=== PATIENT | female | born 2005 | race Caucasian/White ===

== ENCOUNTER 2025-01-06 08:50 | Outpatient (REF) | payer OTHER, SELFPAY ==
--- NOTE | ~2025-01-06 | US_ITS ---
EXAMINATION: US PELVIS TRANSABDOMINAL AND TRANSVAGINAL CLINICAL INFORMATION: Reason for Exam-PELVIC PAIN COMPARISON: None available. TECHNIQUE: Ultrasound of the pelvis is performed using both transabdominal and transvaginal transducers along with Doppler. Transvaginal imaging is performed due to inadequate visualization transabdominally. FINDINGS: Uterus: The uterus is anteverted and measures 7.7 x 3.4 x 4.5 cm. Volume of 61.2 cm3 Endometrial echo complex measures 0.6 cm. Intrauterine device appears properly positioned within the endometrial canal. The uterus is smooth in contour and has normal myometrial echogenicity. No focal lesions demonstrated. Adnexa: Right ovary measures 3.6 x 2.0 x 1.8 cm (Volume of 6.7 cm3). Normal follicular appearance. Left ovary measures 4.3 x 2.5 x 2.8 cm (Volume of 15.7 cm3). Normal follicular appearance. US/US pelvic and transvaginal IMPRESSION: No acute sonographic findings demonstrated. Electronically signed by: Alba Lange MD 01/06/2025 06:27 PM EDT
--- OUTSIDE RECORDS SUMMARY | 2025-01-06 09:10 | XMS_ITS | Clinical Summary ---
Author Organization [facility] Address [address] [facility] [address] [place] [phone] Phone Care Team Providers Care Air Purifier Servicer Name Role Phone Pcp, Unknown Primary Care Provider Unavailabl e Allergies No known active allergies Medications ARIPiprazole (ABILIFY) 2 MG tablet daily. 4 Active FLUoxetine (PROZAC) 10 MG capsule Take 1 capsule by mouth daily. Active FLUoxetine (PROZAC) 20 MG capsule Active PANFILO 24 FE 1 mg-20 mcg (24)/75 mg (4) Tab 4 Active OXcarbazepine (TRILEPTAL) 300 MG tablet Take 300 mg by mouth daily. 4 Active ZAFEMY 150-35 mcg/[address] 1 patch onto the skin once a week. 5 Active traZODone (DESYREL) 50 MG tablet Take 50 mg by mouth. 5 Active ondansetron (ZOFRAN-ODT) 4 MG disintegrating tablet Take 1 tablet (4 mg total) by mouth every 8 (eight) hours as needed for nausea. 15 tablet 5 Active Encounters Date Type Department Care Team Description 11/04/2024 9:54 PM EDT - 11/05/2024 12:10 AM EDT Emergency [facility] [address] [place] [address] Guerrero Salguero, DO Discharge Disposition: Home or Self Care from Last 3 Months Social History Tobacco Use Types Packs/Day Years Used Date Smoking Tobacco: Never Smokeless Tobacco: Never Tobacco Cessation:Counseling Given: Not Answered Education Answer Date Recorded Are you interested in more education? Not on heidy e 03/06/2023 Are you concerned about learning? Not on file 03/06/2023 No 03/06/2023 No 03/06/2023 Digital Access Answer Date Recorded No 03/06/2023 No 03/06/2023 Reliable internet access at home? Not on file 03/06/2023 Device with a working camera? Not on file Intimate Partner Violence Answer Date R ecorded Are you denied basic needs s uch as food, clothing, or medical care? No 11/04/2024 In the past 12 months have y ou been in a relationship with a person who hurts, threatens, or tries to control you? No 11/04/2024 Are you denied basic needs s uch as food, clothing, or medical care? No 11/04/2024 In the past 12 months have y ou been in a relationship with a person who hurts, threatens, or tries to control you? No 11/04/2024 Comments Unknown Sex and Gender Information Value Date Recorded Sex Assigned at Female 11/04/2024 7:57 PM EDT Legal Sex Female 7:47 PM EDT Gender Identity Female 11/04/2024 7:57 PM EDT Sexual Orientation Straight 11/04/2024 7: 57 PM EDT Last Filed Vital Signs Vital Sign Reading Time Taken Comments Blood Pressure 106/54 11/04/2024 11:00 PM EDT Pulse 72 11/04/2024 9:27 PM EDT Temperature 37.5 C (99.5 F) 11/04/2024 11:00 PM EDT Respiratory Rate 16 11/04/2024 9:27 PM EDT Oxygen Saturation 100% 11/04/2024 11:00 PM EDT Inhaled Oxygen Concentration - - Weight 59 kg (130 lb) 11/04/2024 7:59 PM EDT Height 160 cm (5' 3 ) 11/04/2024 7:59 PM EDT Body Mass Index 23.03 11/04/2024 7:59 PM EDT Plan of Treatment Health Maintenance Due Date Last Done Comments Adult Td,Tdap Booster 2003 MMR VACCINES (1 of 1 - Stand julia series) 10/13/2004 COMBINED DTaP,Tdap,Td (1 - Tdap) 10/13/2010 DEPRESSION SCREENING 2015 SMOKING Hx and SMOKELESS TOB ACCO SCREENING 10/13/2016 HPV VACCINES (1 - 3-dose series) 10/13/2018 CHLAMYDIA SCREENING 2019 MENINGOCOCCAL VACCINES (B) ( 1 of 2 - Standard) 2019 ADOLESCENT UNIVERSAL LIPID SCREENING 10/13/2020 HEPATITIS C SCREENING 10/13/2021 HIV ONE-TIME SCREENING (18-6 5 YEARS) 10/13/2021 COVID-19 VACCINE (1 - 2023-2 5 season) 2024 PAP SMEAR 10/13/2024 HEPATITIS A VACCINES Aged Out No long er eligible based on patient's age to complete this topic HIB VACCINES Aged Out No longer eligi ble based on patient's age to complete this topic MENINGOCOCCAL VACCINES (ACWY) Aged Out No longer eligible based on patient's age to complete this topic PNEUMOCOCCAL VACCINES (0-49 years) Aged Out No longer eligible based on patient's age to complete this topic Medical Devices Not on file Procedures Procedure Name Priority Date/Time Associated Diagnosis Comments URINALYSIS W/REFLEX URINE CULTURE STAT 11/04/2024 10:22 PM EDT LIPASE STAT 11/04/2024 8:05 PM EDT LFTS (HEPATIC PANEL) STAT 11/04/2024 8:05 PM EDT HCG, SERUM QUALITATIVE STAT 11/04/2024 8:05 PM EDT BASIC METABOLIC PANEL STAT 11/04/2024 8:05 PM EDT CBC AND DIFFERENTIAL STAT 11/04/2024 8:05 PM EDT from Last 3 Months Results * (ABNORMAL) Urinalysis w/reflex Urine Culture (11/04/2024 10:22 PM EDT) COLOR Yellow Yellow [facility] CLARITY HAZY [facility] GLUCOSE Negative Negative [facility] BILI Negative Negative [facility] KETONES 1+(A) Negative [facility] SPECIFIC GRAVITY >1.030 1.005 - 1.030 [facility] BLOOD Trace(A) Negative [facility] PH 6.0 5.0 - 8.0 [facility] Protein-UA Trace(A) Negative [facility] NITRITE Negative Negative [facility] Leukocyte esterase, ur Negative Negative [facility] Urine (Urine) 11/04/2024 10: 22 PM EDT 11/04/2024 10:23 PM EDT us Guerrero G Salguero DO URINE ORDERABLES Final Result Performing Organization Address [facility]/ZIP Co de Phone Number [address] [phone] * HCG, serum qualitative (11/04/2024 8:05 PM EDT) HCG, QUALITATIVE Negative Negative IU/L [facility] Blood 11/04/2024 8:05 PM EDT 11/04/2024 8:11 PM EDT us Guerrero Salguero DO LAB BLOOD ORDERABLES Final Re sult Performing Organization Address [facility] Co de Phone Number [address] [phone] * (ABNORMAL) LFTs (hepatic panel) (11/04/2024 8:05 PM EDT) ALKALINE PHOSPHATASE 53 39 - 117 U/L [facility] TOTAL BILIRUBIN 1.3(H) 0.0 - 1.2 mg/dL [facility] DIRECT BILIRUBIN 0.3(H) 0.0 - 0.2 mg/dL [facility] Bilirubin (Indirect) 1.0 0 - 1.5 mg/dL [facility] AST 24 0 - 37 U/L [facility] ALT 27 0 - 40 U/L [facility] TOTAL PROTEIN 7.1 6.5 - 8.0 g/dL [facility] ALBUMIN 4.2 3.9 - 4.8 g/dL [facility] GLOBULIN 2.9 1 - 4.8 g/dL [facility] A/G Ratio 1.45 1.00 - 4.80 RATIO [facility] Blood 11/04/2024 8:05 PM EDT 11/04/2024 8:11 PM EDT us Guerrero Salguero DO LAB BLOOD ORDERABLES Final Re sult [facility] [address] [place] [address] * CBC and differential (11/04/2024 8:05 PM EDT) WBC 8.84 4.00 - 11.00 K/uL [facility] RBC 4.08 4.00 - 5.20 M/uL [facility] HGB 12.4 12.0 - 16.0 g/dL [facility] HCT 36.7 36.0 - 46.0 % [facility] PLT 227 150 - 450 K/uL [facility] MCV 90.0 80.0 - 100.0 fL [facility] MCH 30.4 27.0 - 31.0 pg [facility] MCHC 33.8 32.0 - 36.0 g/dL [facility] RDW 11.5 11.5 - 14.5 % [facility] MPV 10.1 8.4 - 12.0 fL [facility] NRBC 0.00 0.00 /100 WBCs [facility] ABSOLUTE NRBC 0.00 0.00 K/uL [facility] DIFF METHOD Auto [facility] NEUTS 65.8 48.0 - 76.0 % [facility] LYMPHS 25.9 18.0 - 41.0 % [facility] MONOS 6.3 4.0 - 11.0 % [facility] EOS 1.1 0.0 - 5.0 % [facility] BASOS 0.6 0.0 - 1.5 % [facility] Granulocytes, immature (%) 0.3 0.0 - 0.9 % [facility] ABSOLUTE NEUTS 5.81 1.92 - 7.60 K/uL [facility] ABSOLUTE LYMPHS 2.29 0.72 - 4.10 K/uL [facility] ABSOLUTE MONOS 0.56 0.16 - 1.10 K/uL [facility] ABSOLUTE EOS 0.10 0.00 - 0.50 K/uL [facility] ABSOLUTE BASOS 0.05 0.00 - 0.15 K/uL [facility] Granulocytes, immature 0.03 0.00 - 0.09 K/uL [facility] Blood 11/04/2024 8:05 PM EDT 11/04/2024 8:11 PM EDT Guerrero Fay Salguero DO LAB BLOOD ORDERABLES Final Re sult Performing Organization Address City/[facility]/ZIP Co de Phone Number [address] [phone] * Lipase (11/04/2024 8:05 PM EDT) LIPASE 19 16 - 63 U/L [facility] Blood 11/04/2024 8:05 PM EDT 11/04/2024 8:11 PM EDT us Guerrero Salguero LAB BLOOD ORDERABLES Final Re sult Performing Organization Address [facility] Co de Phone Number [address] [address] * (ABNORMAL) Basic metabolic panel (11/04/2024 8:05 PM EDT) SODIUM 143 133 - 146 mmol/L [facility] CHLORIDE 105 96 - 108 mmol/L [facility] POTASSIUM 3.8 3.3 - 5.1 mmol/L [facility] CO2 28 21 - 35 mmol/L [facility] BUN 13 6 - 19 mg/dL [facility] CREATININE 0.50 0.5 - 1.5 mg/dL [facility] GLUCOSE 127(H) 70 - 99 mg/dL [facility] CALCIUM 9.2 8.4 - 10.3 mg/dL [facility] EGFR >120 >59 mL/min/1.7 3m2 [facility] Comment:Estimated glomerular filtration rate calculated using the CKD-EPI refit equation. ANION GAP 14 10 - 20 mmol/L [facility] Blood 11/04/2024 8:05 PM EDT 11/04/2024 8:11 PM EDT us Guerrero Salguero DO LAB BLOOD ORDERABLES Final Re sult [facility] [address] [place] [address] from Last 3 Months Insurance JOSE LOBATO Care Teams Air Purifier Servicer Relationship Specialty Start Date End Date Pcp, Unknown PCP - General 11/04/24 Additional Source Comments The information contained in this document represents components of the legal health record. It is not the complete legal health record.[facility]
--- OUTSIDE RECORDS SUMMARY | 2025-01-06 09:10 | XMS_ITS ---
Author Name CRISP Organization Unknown Assessment and Plan ID Update Date Source Alert Text [facility]-[id number] 06/25/2022 [employer] COVID Vacci nation: This patient has received the [employer] COVID-19 vaccination on 06/25/2022 with lot number [id number] at [address] [place] [employer]-[id number] 08/31/2020 MessageMe COVID Vacci [facility]: This patient has received the [employer] COVID-19 vaccination on 08/31/2020 with lot number [id number] at [facility]. [facility]-[id number] 08/10/2020 [employer] COVID Vacci [facility]: This patient has received the [employer] COVID-19 vaccination on 08/10/2020 with lot number [id number] at [facility]. Care Team Organization Name Specialty Phone Email Start Date End Da te [employer] 07/11/2023 4 Commercial Recipient Panel for Real-Time Alerts 09/06/2022 4 [employer] Insurance SHU MENDEZ Primary Care [email or web address] 04/06/2022 4 Terminated: [employer] ([employer]) [facility] 03/24/2019 9 [facility] KIM ARREOLA Primary Care 11/19/2018 1 [facility] 11/19/2018 1
--- OUTSIDE RECORDS SUMMARY | 2025-01-06 09:10 | XMS_ITS ---
Author Name CRISP Organization Unknown Assessment and Plan ID Update Date Source Alert Text [facility]-[id number] 06/25/2022 [employer] COVID Vacci nation: This patient has received the [employer] COVID-19 vaccination on 06/25/2022 with lot number [id number] at [address] [place] [employer]-[id number] 08/31/2020 [facility] COVID Vacci [facility]: This patient has received the [employer] COVID-19 vaccination on 08/31/2020 with lot number [id number] at [facility]. [facility]-[id number] 08/10/2020 [employer] COVID Vacci [facility]: This patient has received the [employer] COVID-19 vaccination on 08/10/2020 with lot number [id number] at [facility]. Care Team Organization Name Specialty Phone Email Start Date End Da te [employer] 07/11/2023 4 Commercial Recipient Panel for Real-Time Alerts 09/06/2022 4 [employer] Insurance SHU MENDEZ Primary Care [email or web address] 04/06/2022 4 Terminated: [employer] ([employer]) [facility] 03/24/2019 9 [facility] KIM ARREOLA Primary Care 11/19/2018 1 [facility] Cathy Munroe [facility] 11/19/2018 1
== END 2025-01-06 08:51 | disposition home or self-care (01) ==
LOC: HO.UMASIMG 08:50
PROVIDERS: Visit Provider Family Medicine
DX: R10.2 Pelvic and perineal pain (principal)
CPT/HCPCS: 76830; 76856

== ENCOUNTER → 2025-01-06 14:30 | Outpatient (BNV) | payer OTHER, SELFPAY | PROVIDERS: Visit Provider Radiology Body Imaging | DX: R10.9 Unspecified abdominal pain (principal) | CPT/HCPCS: 76830; 76856 ==

== ENCOUNTER 2025-05-11 08:07 | Outpatient (REF) | payer OTHER, SELFPAY ==
--- NOTE | ~2025-05-11 | US_ITS ---
EXAMINATION: US PELVIS CLINICAL INFORMATION: Pelvic pain. Check IUD placement. COMPARISON: Previous exam December 2024 TECHNIQUE: Ultrasound of the pelvis is performed using both transabdominal and transvaginal transducers along with Doppler. Transvaginal imaging is performed due to inadequate visualization transabdominally. FINDINGS: Uterus: The uterus is anteverted and measures 7.1 x 3.8 x 4.8 cm. IUD in the uterus in satisfactory position. Normal endometrial thickness measuring 4 mm. No endometrial fluid or mass. The uterus is smooth in contour and has normal myometrial echogenicity. No visible fibroid. Adnexa: Both ovaries are visualized. There is normal color flow to the adnexa. There is no ovarian torsion. There is a small amount of pelvic fluid. Right ovary measures 4.1 x 2.2 x 2 cm. Normal Left ovary measures 4 x 2.3 x 2.2 cm. Normal US/US pelvic and transvaginal IMPRESSION: IUD in the uterus in satisfactory position. Otherwise unremarkable exam. Electronically signed by: Sasha Jacobson MD 05/11/2025 12:31 PM LONNIE
--- OUTSIDE RECORDS SUMMARY | 2025-05-11 08:22 | XMS_ITS | Clinical Summary ---
Author Organization [facility] Address [address] [facility] [address] [place] [phone] Phone Care Team Providers Care Features Reporter Name Role Phone Pcp, Unknown Primary Care [...] needed for nausea. 15 tablet 5 Active Social History Tobacco Use Types Packs/Day Years [...] HIV ONE-TIME SCREENING (18-6 5 YEARS) 10/13/2021 PAP SMEAR 10/13/2024 INFLUENZA VACCINE (#1) 2024 COVID-19 VACCINE (1 - 2024-2 6 season) 2025 HEPATITIS A VACCINES Aged Out No long [...] this topic Medical Devices Not on file [facility] Care Teams Features Reporter Relationship Specialty Start Date End Date Pcp, Unknown PCP - General 11/04/24 Additional Source Comments The information contained in this document represents components of the legal health record. It is not the complete legal health record.[facility]
== END 2025-05-11 08:08 | disposition home or self-care (01) ==
LOC: HO.UMASIMG 08:07
PROVIDERS: Visit Provider Registered Nurse
DX: Z30.430 Encounter for insertion of intrauterine contraceptive device (principal); R10.20 Pelvic and perineal pain unspecified side
CPT/HCPCS: 76830; 76856

== ENCOUNTER → 2025-05-11 11:33 | Outpatient (BNV) | payer OTHER, SELFPAY | PROVIDERS: Visit Provider Radiology Diagnostic Radiology | DX: R10.20 Pelvic and perineal pain unspecified side (principal); Z97.5 Presence of (intrauterine) contraceptive device | CPT/HCPCS: 76830; 76856 ==